=== PATIENT | female | born 1975 ===

== ENCOUNTER 2019-04-07 20:05 | Emergency (ER) | payer OTHER ==
[2019-04-07 20:21] VITALS: RESP 18; TEMP 98.3; BMI 31.4
--- NOTE | 2019-04-08 00:20 | ED PDOC ---
Arrival/HPI - General Chief Complaint: Upper Extremity Problem/Injury Time Seen by Provider: 04/07/19 20:08 Historian: Patient - History of Present Illness Narrative History of Present Illness (Text): 04/07/19 23:37 43 y/o female with no significant PMH presents to the ED c/o right lateral elbow pain x 1 day. Pain is worse with flexion and extension of elbow and lateral flexion of wrist. 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 Has not taken any medication for pain. Denies fever, chills, trauma/injury, numbness, weakness, paresthesias, skin redness, arm swelling, shoulder or wrist pain, chest pain, SOB, or any other associated symptoms. Past Medical History - Provider Review Nursing Documentation Reviewed: Yes Primary Care Provider: Smooth Wyatt - Infectious Disease Hx of Infectious Diseases: None - Psychiatric Hx Substance Use: No - Anesthesia Hx Anesthesia: No Family/Social History - Physician Review Nursing Documentation Reviewed: Yes Family/Social History: No Known Family HX Smoking Status: Never Smoked Hx Alcohol Use: No Hx Substance Use: No Allergies/Home Meds Allergies/Adverse Reactions: Allergies No Known Allergies Allergy (Verified 04/07/19 20:21) Review of Systems - Review of Systems ENT: Normal. absent: Sore Throat, Sinus Congestion Respiratory: Normal. absent: SOB, Cough Cardiovascular: Normal. absent: Chest Pain, Palpitations Gastrointestinal: Normal. absent: Abdominal Pain, Nausea, Vomiting Musculoskeletal: Other (right elbow pain). absent: Back Pain, Neck Pain Skin: Normal. absent: Rash, Laceration, Abscess, Cellulitis Neurological: Normal. absent: Headache, Dizziness Physical Exam Vital Signs Reviewed: Yes Vital Signs Temp Pulse Resp BP Pulse Ox 04/07/19 20:21 98.3 F 83 18 128/82 100 Temperature: Afebrile Blood Pressure: Normal Pulse: Regular Respiratory Rate: Normal Appearance: Positive for: Well-Appearing, Non-Toxic, Comfortable Pain Distress: None Mental Status: Positive for: Alert and Oriented X 3 - Systems Exam Head: Present: Atraumatic, Normocephalic Pupils: Present: PERRL Extroacular Muscles: Present: EOMI Conjunctiva: Present: Normal Mouth: Present: Moist Mucous Membranes Neck: Present: Normal Range of Motion. No: Meningeal Signs Respiratory/Chest: Present: Clear to Auscultation Cardiovascular: Present: Regular Rate and Rhythm, Peripheal Pulses Present Upper Extremity: Present: Normal Inspection, Normal ROM, NORMAL PULSES, Tenderness (right elbow lateral epicondyle), Neurovascularly Intact, Capillary Refill < 2s, Other ((+) cozens test). No: Cyanosis, Edema, Swelling, Erythema, Temperature Abnormalties Lower Extremity: Present: Normal ROM Neurological: Present: GCS=15, Speech Normal, Motor Func Grossly Intact, Normal Sensory Function, Gait Normal Skin: Present: Warm, Dry, Normal Color. No: Rashes, Erythematous, Induration, Hot, Laceration, Abrasion Psychiatric: Present: Alert, Oriented x 3, Normal Insight, Normal Concentration, Normal Affect, Normal Mood Medical Decision Making ED Course and Treatment: Initial Plan: * Right Elbow XR * Toradol Right elbow XR negative for fracture or dislocation as read by me. Right elbow placed in TAMAR bandage. Pt most likely has tendonitis or lateral epicondylitis. Advised supportive measures and orthopedic/PMD followup. Diagnostic testing results and plan of care discussed with patient. Strict instructions given regarding prescription use, importance of followup, and signs/symptoms to return to ER including numbness, weakness, paresthesias, or any other new/worsening symptoms. Pt verbalized understanding of discussion. Patient is A&Ox3, ambulating with steady gait, with vital signs stable for discharge. - RAD Interpretation Radiology Orders: 04/07/19 21:00 ELBOW RIGHT 3 VIEWS ROUTINE [RAD] Stat - Medication Orders Current Medication Orders: Discontinued Medications Ketorolac Tromethamine (Toradol) 60 mg IM STAT STA Stop: 04/07/19 21:01 Last Admin: 04/07/19 21:19 Dose: 60 mg MAR Pain Assessment Document 04/07/19 21:19 SS (Rec[facility] [facility] [id number] Pain Reassessment Is this a pain reassessment? No Sleep Is patient sleeping during reassessment? No Presence of Pain Presence of Pain Yes IM Administration Charges Document 04/07/19 21:19 SS (Rec: 04/07/19 21:[address] [id number] Charges for Administration # of IM Administrations 1 Disposition/Present on Arrival - Present on Arrival Any Indicators Present on Arrival: No History of DVT/PE: No History of Uncontrolled Diabetes: No Urinary Catheter: No History of Decub. Ulcer: No History Surgical Site Infection Following: None - Disposition Have Diagnosis and Disposition been Completed?: Yes Diagnosis: Lateral epicondylitis Disposition: HOME/ ROUTINE Disposition Time: 23:45 Condition: GOOD Discharge Instructions (ExitCare): Lateral Epicondylitis (DC) Additional Instructions: Ibuprofen every 8 hours with food as needed for pain Keep elbow compressed and elevated Ice every hour, 15 minutes at a time for the next 24 hours Rest, no strenuous activity or heavy lifting Followup with orthopedics within 2 days Followup with primary doctor within 2 days Return to ER with any new/worsening symptoms Prescriptions: Ibuprofen [Motrin Tab] 600 mg PO Q8 PRN #30 tab PRN Reason: Pain, Moderate (4-7) Referrals: [facility] [place] [Outside] - Follow up with primary Orth[facility] at [Outside] - Follow up with primary Abe Qureshi MD [Staff Provider] - Follow up with primary Mariama Talamantes MD [Medical Doctor] - Follow up with primary Forms: [facility] (Hungarian), WORK NOTE
[2019-04-08 00:54] VITALS: BP 128/80; PULSE 80; O2SAT 99
--- NOTE | 2019-04-08 11:31 | RAD ---
Date of service: 04/07/2019 PROCEDURE: Radiographs of the right elbow. HISTORY: right lateral elbow pain, atraumatic COMPARISON: No prior. TECHNIQUE: 3 views obtained. FINDINGS: BONES: Bone alignment and mineralization are normal. There is no acute displaced fracture or bone destruction. JOINTS: Normal. No osteoarthritis. SOFT TISSUES: Normal. JOINT EFFUSION: None. OTHER FINDINGS: None. IMPRESSION: No acute displaced fracture or dislocation.
== END 2019-04-08 00:54 | disposition home or self-care (01) ==
LOC: ED 20:05
DX: M77.11 Lateral epicondylitis, right elbow (principal)
CPT/HCPCS: 73080; 81025; 96372; 99284; J1885